=== PATIENT | female | born 1960 | race Two or more races ===

== ENCOUNTER 2018-10-18 11:25 | Inpatient (IN) | payer OTHER ==
[~2018-10-18] VITALS: Ht 152.4 cm; Wt 83.5 kg
[2018-11-21] MEDS ORDERED: LORAZE PO (13:26)
[2018-11-21] MEDS ORDERED: PAROXETINE HCL20 MG PO (13:27)
[2018-11-21] MEDS ORDERED: METFOR PO (13:27)
[2018-11-21] MEDS ORDERED: SYNTHROID75 MCG PO (13:28)
[2018-11-21] MEDS ORDERED: LOSARTAN-HCTZ1 EACH PO (13:28)
[2018-11-21] MEDS ORDERED: OSTERA TABLET1 EACH PO (13:28)
[2018-11-21] MEDS ORDERED: CALTRATE PO (13:29)
[2018-11-21] MEDS ORDERED: GABAPENTIN300 MG PO (13:29)
[2018-11-21] MEDS ORDERED: FUSION PLUS CA1 EACH PO (13:30)
[2018-11-21] MEDS ORDERED: LATANOPROST2.5 ML OP (13:30)
[2018-11-21] MEDS ORDERED: BETIMOL5 M1 OTIC (13:30)
[2018-11-28] MEDS ORDERED: ATORVASTATIN CA20 MG PO (08:02)
[2018-11-28] MEDS ORDERED: ATIVAN0.5 MG PO (08:03)
[2018-11-28] MEDS ORDERED: RESTORA CAPSUL1 EACH PO (08:03)
[2018-11-28] MEDS ORDERED: METFORMIN HCL1000 MG PO (08:03)
[2018-12-05] MEDS ORDERED: NEURONTIN300 MG PO (07:28)
[2018-12-05] MEDS ORDERED: ULTRACET PO (07:28)
[2018-12-05] MEDS ORDERED: MIRALAX17 GM PO (07:28)
== END 2018-12-05 09:51 | disposition home or self-care (01) | DRG 354 ==
LOC: SURG 11-21 11:00 → O/R 11-28 05:00 → SURH 11-28 05:00 → SURG 11-28 07:00 → SURH 11-28 11:54
PROVIDERS: ADMIT Surgery
PROC: 3E0M05Z Introduction of Adhesion Barrier into Peritoneal Cavity, Open Approach (ICD-10-PCS; 2018-11-28)
PROC: 0WUF0JZ Supplement Abdominal Wall with Synthetic Substitute, Open Approach (ICD-10-PCS; principal; 2018-11-28 07:00)
PROC: 3E0F7GC Introduction of Other Therapeutic Substance into Respiratory Tract, Via Natural or Artificial Opening (ICD-10-PCS; 2018-11-30)
PROC: 4A033R1 Measurement of Arterial Saturation, Peripheral, Percutaneous Approach (ICD-10-PCS; 2018-12-01)
PROC: BB24Y0Z Computerized Tomography (CT Scan) of Bilateral Lungs using Other Contrast, Unenhanced and Enhanced (ICD-10-PCS; 2018-12-02)
DX: K43.0 Incisional hernia with obstruction, without gangrene (principal); K56.51 Intestinal adhesions [bands], with partial obstruction; Z99.11 Dependence on respirator [ventilator] status; J95.89 Other postprocedural complications and disorders of respiratory system, not elsewhere classified; J98.11 Atelectasis; J90 Pleural effusion, not elsewhere classified; E83.42 Hypomagnesemia; R53.1 Weakness; K42.0 Umbilical hernia with obstruction, without gangrene; E11.40 Type 2 diabetes mellitus with diabetic neuropathy, unspecified; K21.9 Gastro-esophageal reflux disease without esophagitis; K76.0 Fatty (change of) liver, not elsewhere classified; E03.8 Other specified hypothyroidism; G47.33 Obstructive sleep apnea (adult) (pediatric); Z79.4 Long term (current) use of insulin